=== PATIENT | female | born 1955 | race African-American/Black ===

== ENCOUNTER 2017-02-28 09:02 | Inpatient (IN) | payer BC ==
[2017-02-28 10:35] VITALS: BMI 22.8
--- NOTE | 2017-02-28 11:24 | HP ---
CIWA Score - CIWA Score Nausea/Vomitin Muscle Tremors: 4-Moderate,w/Arms Extend Anxiety: 4-Mod. Anxious/Guarded Agitation: 4-Moderately Restless Paroxysmal Sweats: 3 Orientation: 0-Oriented Tacttile Disturbances: 0-None Auditory Disturbances: 0-None Visual Disturbances: 0-None Headache: 0-None Present CIWA-Ar Total Score: 17 Admission [facility] - HPI Chief Complaint: I am tired of drinking alcohol everyday and need help and stay sober. Allergies/Adverse Reactions: Allergies Allergy/AdvReac Type Severity Reaction Status Date / Time No Known Allergies Allergy Verified 02/28/17 11:13 History of Present Illness: Pt is a 61yr old female with a history of alcohol dependence seeking detox for treatment. Pt last detox was 2yrs ago at [facility] detox. Exam Limitations: No Limitations - Ebola screening Have you traveled outside of the country in the last 21 days: No Have you had contact with anyone from an Ebola affected area: No Have you been sick,other than usual withdrawal symptoms: No Do you have a fever: No - Review of Systems Constitutional: Chills, Diaphoresis, Loss of Appetite, Changes in sleep, Unintentional Wgt. Loss EENT: reports: No Symptoms Reported Respiratory: reports: Cough Cardiac: reports: Syncope GI: reports: Diarrhea, Nausea, Poor Appetite, Poor Fluid Intake : reports: No Symptoms Reported Musculoskeletal: reports: No Symptoms Reported Integumentary: reports: Flushing, Sweating Neuro: reports: Tingling, Tremors Endocrine: reports: Excessive Sweating, Flushing, Intolerance to Cold, Intolerance to Heat Hematology: reports: No Symptoms Reported Psychiatric: reports: Judgement Intact, Mood/Affect Appropiate, Orientated x3, Agitated, Anxious Other Systems: Reviewed and Negative Patient History - Patient Medical History Hx Anemia: No Hx Asthma: Yes Hx Chronic Obstructive Pulmonary Disease (COPD): No Hx Cancer: No Hx Cardiac Disorders: No Hx Congestive Heart Failure: No Hx Hypertension: Yes Hx Hypercholesterolemia: Yes Hx Pacemaker: No HX Cerebrovascular Accident: No Hx Seizures: No Hx Dementia: No Hx Diabetes: Yes (Type II) Hx Gastrointestinal Disorders: No Hx Liver Disease: No Hx Genitourinary Disorders: No Hx Sexually Transmitted Disorders: No Hx Renal Disease (ESRD): No Hx Thyroid Disease: No Hx Human Immunodeficiency Virus (HIV): No (negative) Hx Hepatitis C: No (negative) Hx Depression: Yes Hx Suicide Attempt: No (denies) Hx Bipolar Disorder: No Hx Schizophrenia: No Other Medical History: h/x of pancreatitis in past 6yrs ago. - Patient Surgical History Past Surgical History: Yes Hx Abdominal Surgery: Yes (PERFORATED ULCER in 2004) - PPD History Previous Implant?: Yes Documented Results: Negative w/o proof PPD to be Administered?: Yes - Reproductive History Patient is a Female of Child Bearing Age (11 -55 yrs old): No - Smoking Cessation Smoking history: Current every day smoker Have you smoked in the past 12 months: Yes Aproximately how many cigarettes per day: 20 Hx Chewing Tobacco Use: No Initiated information on smoking cessation: Yes 'Breaking Loose' booklet given: 02/28/17 - Substance & Tx. History Hx Alcohol Use: Yes Substance Use Type: Alcohol Hx Substance Use Treatment: Yes ([facility] detox 2yrs ago) - Substances Abused Alcohol Route: Oral Frequency: No use in 30 days Amount used: 8 24 OZ BEERS Age of first use: 19 Date of Last Use: 02/28/17 Family Disease History - Family Disease History Family History: Denies Admission Physical Exam [facility] - Vital Signs Vital Signs: Vital Signs - 24 hr 02/28/17 10:33 Temperature 99.2 F Pulse Rate 103 H Respiratory 18 Rate Blood Pressure 158/86 - Physical General Appearance: Yes: Appropriately Dressed, Moderate Distress, Tremorous, Irritable, Sweating, Anxious HEENTM: Yes: Normal Voice Respiratory: Yes: Lungs Clear, Normal Breath Sounds, No Respiratory Distress Neck: Yes: Within Normal Limits Breast: Yes: Within Normal Limits Cardiology: Yes: Regular Rhythm, Regular Rate, S1, S2 Abdominal: Yes: Normal Bowel Sounds, Non Tender, Soft Genitourinary: Yes: Within Normal Limits Back: Yes: Normal Inspection Musculoskeletal: Yes: full range of Motion Extremities: Yes: Normal Inspection, Non-Tender, Tremors Neurological: Yes: Fully Oriented, Alert, Normal Response Integumentary: Yes: Normal Color, Diaphoresis Lymphatic: Yes: Within Normal Limits - Diagnostic (1) Alcohol dependence with uncomplicated withdrawal Current Visit: Yes Status: Chronic (2) Asthma Current Visit: Yes Status: Chronic Qualifiers: Asthma severity: mild intermittent Asthma complication type: uncomplicated Qualified Code(s): J45.20 - Mild intermittent asthma, uncomplicated (3) Diabetes mellitus Current Visit: Yes Status: Chronic Qualifiers: Diabetes mellitus type: type 1 Diabetes mellitus complication status: without complication Qualified Code(s): E10.9 - Type 1 diabetes mellitus without complications (4) HTN (hypertension) Current Visit: Yes Status: Chronic Qualifiers: Hypertension type: essential hypertension Qualified Code(s): I10 - Essential (primary) hypertension (5) Nicotine dependence Current Visit: Yes Status: Chronic Qualifiers: Nicotine product type: cigarettes Substance use status: uncomplicated Qualified Code(s): F17.210 - Nicotine dependence, cigarettes, uncomplicated (6) H/O acute pancreatitis Current Visit: No Status: Resolved Cleared for Admission [facility] - Detox or Rehab S Level of Care: Medically Managed Detox Regimen/Protocol: Librium S Breath Alcohol Content Breath Alcohol Content: 0 Urine Pregancy Test - Result Urine Test Results: Negative- NO Line Present Urine Drug Screen - Results Drug Screen Negative: Yes
[2017-02-28] MEDS ORDERED: MAG HYDROX/AL HYDROX/SIMETH 30 ML UNIT-DOSE CUP PO PRN (11:39)
[2017-02-28] MEDS ORDERED: MAGNESIUM CITRATE 300 ML BOTTLE PO PRN (11:39)
[2017-02-28] MEDS ORDERED: chlordiazePOXIDE HCL 25 MG CAPSULE PO PRN (11:39)
[2017-02-28] MEDS ORDERED: LOPERAMIDE HCL 2 MG CAPSULE PO PRN (11:39)
[2017-02-28] MEDS ORDERED: hydrOXYzine PAMOATE 50 MG CAPSULE (FP) PO PRN (11:39)
[2017-02-28] MEDS ORDERED: MAGNESIUM HYDROX 2400MG/30ML ORAL SUSPENSION 30 ML CUP PO PRN (11:39)
[2017-02-28] MEDS ORDERED: guaiFENesin/D-METHORPHAN HB 10 ML UNIT-DOSE CUPS PO PRN (11:39)
[2017-02-28] MEDS ORDERED: P-EPHED 60MG/TRIPROLIDI 2.5MG TABLET PO PRN (11:39)
[2017-02-28] MEDS ORDERED: NICOTINE POLACRILEX 4 MG GUM BUC PRN (11:39)
[2017-02-28] MEDS ORDERED: ACETAMINOPHEN 325 MG TABLET (FP) PO PRN (11:39)
[2017-02-28] MEDS ORDERED: IBUPROFEN 400 MG TABLET (FP) PO PRN (11:39)
[2017-02-28] MEDS ORDERED: ALBUTEROL SO4 6.7 GM HFA INHALER IH PRN (11:41)
[2017-02-28] MEDS ORDERED: chlordiazePOXIDE HCL 25 MG CAPSULE PO ONE (12:46)
[2017-02-28] MEDS ORDERED: amLODIPine BESYLATE 10 MG TABLET (FP) PO ONE (14:00)
--- NOTE | 2017-02-28 16:10 | CONSULT ---
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 Substance Abuse History: Patient admits to abusing alcohol for past 13 years ( consumes 6 X 24 oz of beer on a daily basis.Last used alcohol on 02/27/17.Smokes one pack of cigarettes daily. Medical History: Hypertension and a history of pancreatitis. Psychiatric History: No reported history of psychiatric hospitalizations.Ms Feldman indicates that she is prescribed trazodone 150 mg/hs by her primary care physician to address chronic insomnia.Feels increasingly more dysphoric since entering skilled nursing.No sustained contact with psychiatrists (except in detox/ rehab settings).Never experiences suicidal ideation.No history of suicide attempts. Physical/Sexual Abuse/Trauma History: No reported history of sexual abuse.Lost her about six years ago. Additional Comment: Drug Screen is negative. Mental Status Exam - Mental Status Exam Alert and Oriented to: Time, Place, Person Cognitive Function: Good Patient Appearance: Well Groomed Mood: Apprehensive, Hopeful Affect: Mood Congruent Patient Behavior: Fatigued, Appropriate, Cooperative Speech Pattern: Clear, Appropriate Voice Loudness: Normal Thought Process: Intact, Goal Oriented Thought Disorder: Not Present Hallucinations: Denies Suicidal Ideation: Denies Homicidal Ideation: Denies Insight/Judgement: Fair Sleep: Poorly, Difficulty falling asleep Appetite: Good Muscle strength/Tone: Normal Gait/Station: Normal Psychiatric Findings - Problem List ([place] 1, 2,3) (1) Alcohol dependence with uncomplicated withdrawal Current Visit: Yes Status: Acute (2) Nicotine dependence Current Visit: Yes Status: Acute Qualifiers: Nicotine product type: cigarettes Substance use status: uncomplicated Qualified Code(s): F17.210 - Nicotine dependence, cigarettes, uncomplicated (3) Alcohol-induced mood disorder Current Visit: Yes Status: Acute (4) Asthma Current Visit: Yes Status: Chronic Qualifiers: Asthma severity: mild intermittent Asthma complication type: uncomplicated Qualified Code(s): J45.20 - Mild intermittent asthma, uncomplicated (5) Diabetes mellitus Current Visit: Yes Status: Chronic Qualifiers: Diabetes mellitus type: type 1 Diabetes mellitus complication status: without complication Qualified Code(s): E10.9 - Type 1 diabetes mellitus without complications (6) HTN (hypertension) Current Visit: Yes Status: Chronic Qualifiers: Hypertension type: essential hypertension Qualified Code(s): I10 - Essential (primary) hypertension (7) Insomnia Current Visit: Yes Status: Chronic - Initial Treatment Plan Initial Treatment Plan: Psychoeducation and support provided in this session.Previous records are revisited.[facility] report is appreciated.Detoxification is in progress.Trrazodone 100 mg po hs.Ordered at patient's request.Side effects /benefits discussed with the patient.Reported history of good tolerability to this drug.Observation.Recent pharmacy claims are checked : scripts for trazodone filled on 02/09/17 at [facility] # [id number].Medication confirmed.
[2017-02-28] MEDS ORDERED: INSULIN (NOVOLOG) ASPART 100 UNITS/ML 10ML VIAL ONE (16:44)
[2017-02-28 16:49] LABS: URINE APPEARANCE CLOUDY; URINE BILIRUBIN NEGATIVE (NEGATIVE); URINE COLOR YELLOW; URINE GLUCOSE (UA) 3+ (NEGATIVE); URINE KETONE 1+ (NEGATIVE); URINE NITRITE POSITIVE (NEGATIVE); URINE PROTEIN NEGATIVE (NEGATIVE); URINE UROBILINOGEN NEGATIVE mg/dL (0.2-1.0)
[2017-02-28 16:55] LABS: URINE BLOOD 1+ (NEGATIVE); URINE LEUK ESTERASE 2+ (NEGATIVE)
[2017-02-28 17:00] LABS: URINE BACTERIA FEW /hpf (NONE SEEN); URINE MUCUS MODERATE; URINE RBC 23 /hpf (0-3); URINE WBC 15 /hpf (3-5); YEAST FEW
[2017-02-28] MEDS: metFORMIN HCL 500 MG TABLET (FP) PO SCH (17:05)
[2017-02-28] MEDS: chlordiazePOXIDE HCL 25 MG CAPSULE PO SCH ×2 (17:05→22:36)
[2017-02-28] MEDS: INSULIN (NOVOLOG) ASPART 100 UNITS/ML 10ML VIAL SQ SCH (17:06)
[2017-02-28] MEDS: MENTHOL/PHENOL 1 EACH UD MM PRN ×2 (17:07→22:38)
[2017-02-28] MEDS: RANITIDINE HCL 150 MG TABLET (FP) PO SCH (22:36)
[2017-02-28] MEDS: THIAMINE HCL 100 MG TABLET (FP) PO SCH (22:36)
[2017-02-28] MEDS: traZODone HCL 100 MG TABLET (FP) PO SCH (22:36)
[2017-03-01] MEDS: chlordiazePOXIDE HCL 25 MG CAPSULE PO SCH ×4 (05:48→22:23)
[2017-03-01] MEDS: metFORMIN HCL 500 MG TABLET (FP) PO SCH ×2 (06:35→17:16)
[2017-03-01] MEDS ORDERED: INSULIN (NOVOLOG) ASPART 100 UNITS/ML 10ML VIAL ONE ×3 (07:02→17:03)
[2017-03-01] MEDS: INSULIN (NOVOLOG) ASPART 100 UNITS/ML 10ML VIAL SQ SCH ×3 (07:03→17:17)
--- NOTE | 2017-03-01 08:31 | EKG ---
Test Reason : Blood Pressure : / mmHG Vent. Rate : 094 BPM Atrial Rate : 094 BPM P-R Int : 160 ms QRS Dur : 090 ms QT Int : 386 ms P-R-T Axes : 080 -73 055 degrees QTc Int : 482 ms NORMAL SINUS RHYTHM POSSIBLE LEFT ATRIAL ENLARGEMENT LEFT AXIS DEVIATION INFERIOR INFARCT , AGE UNDETERMINED POSSIBLE ANTERIOR INFARCT , AGE UNDETERMINED ABNORMAL ECG NO PREVIOUS ECGS AVAILABLE Confirmed by RY YAP, CLEVELAND ([id number]) on 03/01/2017 8:31:18 AM Referred By: NURY LAO Confirmed By:CLEVELAND RAZA MD
[2017-03-01 10:27] LABS: MCH 33.7 pg (25.7-33.7); MCHC 33.7 g/dl (32.0-36.0); MEAN PLT VOLUME 10.8 fl (7.5-11.1); PLATELET COUNT 174 K/MM3 (134-434); RDW 12.7 % (11.6-15.6); WHITE BLOOD COUNT 7.3 K/mm3 (4.0-10.0)
[2017-03-01] MEDS: amLODIPine BESYLATE 10 MG TABLET (FP) PO SCH (10:33)
[2017-03-01] MEDS: RANITIDINE HCL 150 MG TABLET (FP) PO SCH ×2 (10:33→22:23)
[2017-03-01] MEDS: PRENATAL VITAMINS W/ FOLIC ACID TABLET (FP) PO SCH (10:33)
[2017-03-01] MEDS: NICOTINE 21 MG/24 HOURS TOPICAL PATCH TD SCH (10:33)
[2017-03-01 10:34] LABS: ALBUMIN 4.6 g/dl (3.4-5.0); ANION GAP 8 (8-16); CALCIUM 10.2 mg/dL (8.5-10.1); CO2 31 mmol/L (21-32); SGOT/AST 32 U/L (15-37); SGPT/ALT 48 U/L (12-78)
[2017-03-01 10:36] LABS: ALK PHOS 96 U/L (45-117); BILIRUBIN,TOTAL 0.9 mg/dL (0.2-1.0); TOT PROT 8.1 g/dl (6.4-8.2)
[2017-03-01 10:47] LABS: GLUCOSE,RANDOM 395 mg/dL (74-106)
--- NOTE | 2017-03-01 11:23 | PN ---
[facility] CIWA - CIWA Score Nausea/Vomitin Muscle Tremors: 3 Anxiety: 2 Agitation: 2 Paroxysmal Sweats: 2 Orientation: 0-Oriented Tacttile Disturbances: 2-Mild Itch/Numbness/Burn Auditory Disturbances: 0-None Visual Disturbances: 0-None Headache: 1-Very Mild CIWA-Ar Total Score: 15 S Progress Note (SOAP) Subjective: abdominal cramps, N,V, chills,headache Objective: 03/01/17 11:21 Vital Signs 03/01/17 03/01/17 03/01/17 03:29 06:00 09:07 Temperature 97.9 F 98.4 F Pulse Rate 104 H 88 Respiratory 18 18 18 Rate Blood Pressure 132/89 142/87 Laboratory Last Values WBC 7.3 K/mm3 (4.0-10.0) 03/01/17 06:00 RBC 4.42 M/mm3 (3.60-5.2) 03/01/17 06:00 Hgb 14.9 GM/dL (10.7-15.3) 03/01/17 06:00 Hct 44.2 % (32.4-45.2) 03/01/17 06:00 MCV 100.0 fl (80-96) H 03/01/17 06:00 MCH 33.7 pg (25.7-33.7) 03/01/17 06:00 MCHC 33.7 g/dl (32.0-36.0) 03/01/17 06:00 RDW 12.7 % (11.6-15.6) 03/01/17 06:00 Plt Count 174 K/MM3 (134-434) 03/01/17 06:00 MPV 10.8 fl (7.5-11.1) 03/01/17 06:00 Sodium 133 mmol/L (136-145) L 03/01/17 06:00 Potassium 4.5 mmol/L (3.5-5.1) 03/01/17 06:00 Chloride 94 mmol/L (98-107) L 03/01/17 06:00 Carbon Dioxide 31 mmol/L (21-32) 03/01/17 06:00 Anion Gap 8 (8-16) 03/01/17 06:00 BUN 11 mg/dL (7-18) D 03/01/17 06:00 Creatinine 1.0 mg/dL (0.55-1.02) D 03/01/17 06:00 Creat Clearance w eGFR 56.18 (>60) 03/01/17 06:00 POC Glucometer 390 UNITS (()) 03/01/17 10:50 Random Glucose 395 mg/dL (74-106) H* D 03/01/17 06:00 Calcium 10.2 mg/dL (8.5-10.1) H 03/01/17 06:00 Total Bilirubin 0.9 mg/dL (0.2-1.0) D 03/01/17 06:00 AST 32 U/L (15-37) D 03/01/17 06:00 ALT 48 U/L (12-78) D 03/01/17 06:00 Alkaline Phosphatase 96 U/L (45-117) 03/01/17 06:00 Total Protein 8.1 g/dl (6.4-8.2) 03/01/17 06:00 Albumin 4.6 g/dl (3.4-5.0) 03/01/17 06:00 Urine Color Yellow 02/28/17 13:55 Urine Appearance Cloudy 02/28/17 13:55 Urine pH 5.0 (5.0-8.0) 02/28/17 13:55 Ur Specific [place] 1.015 (1.005-1.025) 02/28/17 13:55 Urine Protein Negative (NEGATIVE) 02/28/17 13:55 Urine Glucose (UA) 3+ (NEGATIVE) H 02/28/17 13:55 Urine Ketones 1+ (NEGATIVE) H 02/28/17 13:55 Urine Blood 1+ (NEGATIVE) H 02/28/17 13:55 Urine Nitrite Positive (NEGATIVE) 02/28/17 13:55 Urine Bilirubin Negative (NEGATIVE) 02/28/17 13:55 Urine Urobilinogen Negative mg/dL (0.2-1.0) 02/28/17 13:55 Ur Leukocyte Esterase 2+ (NEGATIVE) H 02/28/17 13:55 Urine RBC 23 /hpf (0-3) 02/28/17 13:55 Urine WBC 15 /hpf (3-5) 02/28/17 13:55 Ur Epithelial Cells Many /hpf (FEW) 02/28/17 13:55 Urine Bacteria Few /hpf (NONE SEEN) 02/28/17 13:55 Urine Mucus Moderate 02/28/17 13:55 Urine Yeast Few 02/28/17 13:55 Labs noted Positive nitrites, leukocyte esterase and epithelial cells with few bacteria Assessment: 03/01/17 11:26 withdrawal sx Plan: continue detox repeat UA C/S as results suggestive of contamination
--- NOTE | 2017-03-01 11:35 | PN ---
[facility] Progress Note Note: Lab Review Patient with high glucose level and low sodium likely as a result of dehydration. Will increase oral fluid intake.
[2017-03-01] MEDS: MENTHOL/PHENOL 1 EACH UD MM PRN (15:41)
[2017-03-01 16:16] LABS: URINE APPEARANCE CLEAR; URINE BILIRUBIN NEGATIVE (NEGATIVE); URINE BLOOD NEGATIVE (NEGATIVE); URINE COLOR LTYELLOW; URINE GLUCOSE (UA) 3+ (NEGATIVE); URINE KETONE NEGATIVE (NEGATIVE); URINE NITRITE POSITIVE (NEGATIVE); URINE PROTEIN NEGATIVE (NEGATIVE); URINE UROBILINOGEN NEGATIVE mg/dL (0.2-1.0)
[2017-03-01 16:22] LABS: URINE LEUK ESTERASE TRACE (NEGATIVE)
[2017-03-01 16:25] LABS: URINE BACTERIA RARE /hpf (NONE SEEN); URINE HYALINE CAST 1 /lpf; URINE MUCUS RARE; URINE RBC 1 /hpf (0-3); URINE WBC 3 /hpf (3-5)
[2017-03-01] MEDS: traZODone HCL 100 MG TABLET (FP) PO SCH (22:23)
[2017-03-01] MEDS: THIAMINE HCL 100 MG TABLET (FP) PO SCH (22:23)
[2017-03-01] MEDS: diphenhydrAMINE HCL 50 MG CAPSULE PO PRN (22:25)
[2017-03-02] MEDS: chlordiazePOXIDE HCL 25 MG CAPSULE PO SCH ×2 (06:21→10:19)
[2017-03-02] MEDS ORDERED: INSULIN (NOVOLOG) ASPART 100 UNITS/ML 10ML VIAL ONE ×3 (06:42→16:50)
[2017-03-02] MEDS: metFORMIN HCL 500 MG TABLET (FP) PO SCH ×2 (06:51→17:16)
[2017-03-02] MEDS: INSULIN (NOVOLOG) ASPART 100 UNITS/ML 10ML VIAL SQ SCH ×3 (06:52→17:06)
[2017-03-02] MEDS: PRENATAL VITAMINS W/ FOLIC ACID TABLET (FP) PO SCH (10:18)
[2017-03-02] MEDS: amLODIPine BESYLATE 10 MG TABLET (FP) PO SCH (10:18)
[2017-03-02] MEDS: RANITIDINE HCL 150 MG TABLET (FP) PO SCH ×2 (10:18→22:42)
[2017-03-02] MEDS: NICOTINE 21 MG/24 HOURS TOPICAL PATCH TD SCH (10:19)
--- NOTE | 2017-03-02 13:29 | EKG ---
Test Reason : Blood Pressure : / mmHG Vent. Rate : 095 BPM Atrial Rate : 095 BPM P-R Int : 180 ms QRS Dur : 084 ms QT Int : 368 ms P-R-T Axes : 077 -74 051 degrees QTc Int : 462 ms NORMAL SINUS RHYTHM POSSIBLE LEFT ATRIAL ENLARGEMENT LEFT AXIS DEVIATION INFERIOR INFARCT (CITED ON OR BEFORE 28-FEB-2017) ABNORMAL ECG WHEN COMPARED WITH ECG OF 28-FEB-2017 13:00, NO SIGNIFICANT CHANGE WAS FOUND Confirmed by CLEVELAND RAZA MD ([id number]) on 03/02/2017 1:28:50 PM Referred By: Confirmed By:CLEVELAND RAZA MD
[2017-03-02] MEDS: MENTHOL/PHENOL 1 EACH UD MM PRN (14:11)
--- NOTE | 2017-03-02 17:01 | PN ---
[facility] CIWA - CIWA Score Nausea/Vomitin-No Nausea/No Vomiting Muscle Tremors: 4-Moderate,w/Arms Extend Anxiety: 4-Mod. Anxious/Guarded Agitation: 4-Moderately Restless Paroxysmal Sweats: 1-Minimal Palms Moist Orientation: 0-Oriented Tacttile Disturbances: 1-Very Mild Itch/Numbness Auditory Disturbances: 0-None Visual Disturbances: 0-None Headache: 3-Moderate CIWA-Ar Total Score: 17 S Progress Note (SOAP) Subjective: Headache, anxious, tremor, interrupted sleep, chills Objective: 03/02/17 16:57 Last Vital Signs Temp Pulse Resp BP Pulse Ox 96.6 F L 97 H 18 119/82 03/02/17 13:50 03/02/17 13:50 03/02/17 13:50 03/02/17 13:50 Laboratory Tests 02/28/17 02/28/17 03/01/17 11:26 13:55 05:47 WBC RBC Hgb Hct MCV MCH MCHC RDW Plt Count MPV Sodium Potassium Chloride Carbon Dioxide Anion Gap BUN Creatinine Creat Clearance w eGFR POC Glucometer 404 293 Random Glucose Calcium Total Bilirubin AST ALT Alkaline Phosphatase Total Protein Albumin Urine Color Yellow Urine Appearance Cloudy Urine pH 5.0 Ur Specific [place] 1.015 Urine Protein Negative Urine Glucose (UA) 3+ H Urine Ketones 1+ H Urine Blood 1+ H Urine Nitrite Positive Urine Bilirubin Negative Urine Urobilinogen Negative Ur Leukocyte Esterase 2+ H Urine RBC 23 Urine WBC 15 Ur Epithelial Cells Many Urine Bacteria Few Hyaline Casts Urine Mucus Moderate Urine Yeast Few RPR Titer 03/01/17 03/01/17 03/01/17 06:00 06:00 06:00 WBC 7.3 RBC 4.42 Hgb 14.9 Hct 44.2 MCV 100.0 H MCH 33.7 MCHC 33.7 RDW 12.7 Plt Count 174 MPV 10.8 Sodium 133 L Potassium 4.5 Chloride 94 L Carbon Dioxide 31 Anion Gap 8 BUN 11 D Creatinine 1.0 D Creat Clearance w eGFR 56.18 POC Glucometer Random Glucose 395 H* D Calcium 10.2 H Total Bilirubin 0.9 D AST 32 D ALT 48 D Alkaline Phosphatase 96 Total Protein 8.1 Albumin 4.6 Urine Color Urine Appearance Urine pH Ur Specific [place] Urine Protein Urine Glucose (UA) Urine Ketones Urine Blood Urine Nitrite Urine Bilirubin Urine Urobilinogen Ur Leukocyte Esterase Urine RBC Urine WBC Ur Epithelial Cells Urine Bacteria Hyaline Casts Urine Mucus Urine Yeast RPR Titer Nonreactive 03/01/17 03/01/17 03/01/17 10:50 15:05 16:27 WBC RBC Hgb Hct MCV MCH MCHC RDW Plt Count MPV Sodium Potassium Chloride Carbon Dioxide Anion Gap BUN Creatinine Creat Clearance w eGFR POC Glucometer 390 395 Random Glucose Calcium Total Bilirubin AST ALT Alkaline Phosphatase Total Protein Albumin Urine Color Ltyellow Urine Appearance Clear Urine pH 5.0 Ur Specific [place] 1.010 Urine Protein Negative Urine Glucose (UA) 3+ H Urine Ketones Negative Urine Blood Negative Urine Nitrite Positive Urine Bilirubin Negative Urine Urobilinogen Negative Ur Leukocyte Esterase Trace H D Urine RBC 1 Urine WBC 3 Ur Epithelial Cells Rare Urine Bacteria Rare Hyaline Casts 1 Urine Mucus Rare Urine Yeast RPR Titer 03/02/17 03/02/17 06:23 16:33 WBC RBC Hgb Hct MCV MCH MCHC RDW Plt Count MPV Sodium Potassium Chloride Carbon Dioxide Anion Gap BUN Creatinine Creat Clearance w eGFR POC Glucometer 349 364 Random Glucose Calcium Total Bilirubin AST ALT Alkaline Phosphatase Total Protein Albumin Urine Color Urine Appearance Urine pH Ur Specific [place] Urine Protein Urine Glucose (UA) Urine Ketones Urine Blood Urine Nitrite Urine Bilirubin Urine Urobilinogen Ur Leukocyte Esterase Urine RBC Urine WBC Ur Epithelial Cells Urine Bacteria Hyaline Casts Urine Mucus Urine Yeast RPR Titer Labs noted: UA shows + nitrite x 2 specimen (+ for UTI) Assessment: 03/02/17 16:57 Withdrawal symptoms DMT2 with hyperglycemia uncontrolled Noted with complicated UTI Plan: Continue detox DMT2 with hyperglycemia uncontrolled: increase metformin to 850mg PO bid, continue fingerstick ac meal with sliding scale insulin coverage Noted with complicated UTI: start cipro 500mg PO BID x 10 days, encouraged to drink lots of water. Follow up on urine C&S result (pending); change antibiotic if warranted as per sensitivity result.
[2017-03-02] MEDS: chlordiazePOXIDE 5 MG CAPSULE PO SCH ×2 (17:04→22:42)
[2017-03-02] MEDS: LEVOFLOXACIN 500 MG TABLET (FP) PO SCH (17:07)
[2017-03-02] MEDS: traZODone HCL 100 MG TABLET (FP) PO SCH (22:41)
[2017-03-02] MEDS: THIAMINE HCL 100 MG TABLET (FP) PO SCH (22:42)
[2017-03-02] MEDS: diphenhydrAMINE HCL 50 MG CAPSULE PO PRN (22:42)
[2017-03-03] MEDS: LEVOFLOXACIN 500 MG TABLET (FP) PO SCH (05:44)
[2017-03-03] MEDS: chlordiazePOXIDE 5 MG CAPSULE PO SCH ×2 (05:44→10:37)
[2017-03-03] MEDS ORDERED: INSULIN (NOVOLOG) ASPART 100 UNITS/ML 10ML VIAL ONE ×2 (06:29→16:30)
[2017-03-03] MEDS: INSULIN (NOVOLOG) ASPART 100 UNITS/ML 10ML VIAL SQ SCH ×3 (06:57→16:38)
[2017-03-03] MEDS: MENTHOL/PHENOL 1 EACH UD MM PRN (08:43)
[2017-03-03] MEDS: RANITIDINE HCL 150 MG TABLET (FP) PO SCH ×2 (10:37→22:31)
[2017-03-03] MEDS: PRENATAL VITAMINS W/ FOLIC ACID TABLET (FP) PO SCH (10:37)
[2017-03-03] MEDS: NICOTINE 21 MG/24 HOURS TOPICAL PATCH TD SCH (10:37)
[2017-03-03] MEDS: amLODIPine BESYLATE 10 MG TABLET (FP) PO SCH (10:37)
--- NOTE | 2017-03-03 12:12 | PN ---
S Progress Note (SOAP) Subjective: ANXIETY,SWEATS,ITCHINESS TO LEFT UPPER BACK. DENIES RASH. Objective: 03/03/17 12:11 Vital Signs Temperature 97.1 F L 03/03/17 09:57 Pulse Rate 84 03/03/17 09:57 Respiratory Rate 20 03/03/17 09:57 Blood Pressure 128/75 03/03/17 09:57 O2 Sat by Pulse Oximetry (%) Laboratory Last Values WBC 7.3 K/mm3 (4.0-10.0) 03/01/17 06:00 RBC 4.42 M/mm3 (3.60-5.2) 03/01/17 06:00 Hgb 14.9 GM/dL (10.7-15.3) 03/01/17 06:00 Hct 44.2 % (32.4-45.2) 03/01/17 06:00 MCV 100.0 fl (80-96) H 03/01/17 06:00 MCH 33.7 pg (25.7-33.7) 03/01/17 06:00 MCHC 33.7 g/dl (32.0-36.0) 03/01/17 06:00 RDW 12.7 % (11.6-15.6) 03/01/17 06:00 Plt Count 174 K/MM3 (134-434) 03/01/17 06:00 MPV 10.8 fl (7.5-11.1) 03/01/17 06:00 Sodium 133 mmol/L (136-145) L 03/01/17 06:00 Potassium 4.5 mmol/L (3.5-5.1) 03/01/17 06:00 Chloride 94 mmol/L (98-107) L 03/01/17 06:00 Carbon Dioxide 31 mmol/L (21-32) 03/01/17 06:00 Anion Gap 8 (8-16) 03/01/17 06:00 BUN 11 mg/dL (7-18) D 03/01/17 06:00 Creatinine 1.0 mg/dL (0.55-1.02) D 03/01/17 06:00 Creat Clearance w eGFR 56.18 (>60) 03/01/17 06:00 POC Glucometer 339 UNITS (()) 03/03/17 05:45 Random Glucose 395 mg/dL (74-106) H* D 03/01/17 06:00 Calcium 10.2 mg/dL (8.5-10.1) H 03/01/17 06:00 Total Bilirubin 0.9 mg/dL (0.2-1.0) D 03/01/17 06:00 AST 32 U/L (15-37) D 03/01/17 06:00 ALT 48 U/L (12-78) D 03/01/17 06:00 Alkaline Phosphatase 96 U/L (45-117) 03/01/17 06:00 Total Protein 8.1 g/dl (6.4-8.2) 03/01/17 06:00 Albumin 4.6 g/dl (3.4-5.0) 03/01/17 06:00 Urine Color Ltyellow 03/01/17 15:05 Urine Appearance Clear 03/01/17 15:05 Urine pH 5.0 (5.0-8.0) 03/01/17 15:05 Ur Specific [place] 1.010 (1.005-1.025) 03/01/17 15:05 Urine Protein Negative (NEGATIVE) 03/01/17 15:05 Urine Glucose (UA) 3+ (NEGATIVE) H 03/01/17 15:05 Urine Ketones Negative (NEGATIVE) 03/01/17 15:05 Urine Blood Negative (NEGATIVE) 03/01/17 15:05 Urine Nitrite Positive (NEGATIVE) 03/01/17 15:05 Urine Bilirubin Negative (NEGATIVE) 03/01/17 15:05 Urine Urobilinogen Negative mg/dL (0.2-1.0) 03/01/17 15:05 Ur Leukocyte Esterase Trace (NEGATIVE) H D 03/01/17 15:05 Urine RBC 1 /hpf (0-3) 03/01/17 15:05 Urine WBC 3 /hpf (3-5) 03/01/17 15:05 Ur Epithelial Cells Rare /hpf (FEW) 03/01/17 15:05 Urine Bacteria Rare /hpf (NONE SEEN) 03/01/17 15:05 Hyaline Casts 1 /lpf 03/01/17 15:05 Urine Mucus Rare 03/01/17 15:05 Urine Yeast Few 02/28/17 13:55 RPR Titer Nonreactive (NONREACTIVE) 03/01/17 06:00 LABS NOTED. ON CIPRO BACK;SLIGHT SCATTERED DISCOLORATION OF SKIN. NO PAPULAR RASH NOTED Assessment: 03/03/17 12:11 WITHDRAWAL SX Plan: CONTINUE DETOX HYDROCORTISONE CREAM 1% APPLY TO AFFECTED AREA DIRECTED
[2017-03-03] MEDS ORDERED: HYDROCORTISONE 1% TOPICAL CREAM 30 GM TUBE TP PRN (12:14)
[2017-03-03] MEDS: chlordiazePOXIDE HCL 10 MG CAPSULE PO SCH ×2 (16:37→22:31)
[2017-03-03] MEDS: traZODone HCL 100 MG TABLET (FP) PO SCH (22:31)
[2017-03-03] MEDS: THIAMINE HCL 100 MG TABLET (FP) PO SCH (22:31)
[2017-03-03] MEDS: diphenhydrAMINE HCL 50 MG CAPSULE PO PRN (22:34)
[2017-03-04] MEDS: LEVOFLOXACIN 500 MG TABLET (FP) PO SCH (05:50)
[2017-03-04] MEDS: chlordiazePOXIDE HCL 10 MG CAPSULE PO SCH (05:50)
[2017-03-04] MEDS: INSULIN (NOVOLOG) ASPART 100 UNITS/ML 10ML VIAL SQ SCH (07:04)
[2017-03-04] MEDS ORDERED: INSULIN (NOVOLOG) ASPART 100 UNITS/ML 10ML VIAL ONE (07:05)
[2017-03-04 09:50] VITALS: BP 131/93; PULSE 109; TEMP 97.5
--- NOTE | 2017-03-04 11:40 | DS ---
[facility] Detox Discharge Summary Admission Date: 02/28/17 Discharge Date: 03/04/17 - History Present History: Alcohol Dependence Additional Comments: DETOX COMPLETED. REMINDED TO FOLLOW UP WITH PMD FOR MEDICAL MANAGEMENT OF COMORBID CONDITIONS. Pertinent Past History: ASTHMA HTN HYPERCHOLESTEROLEMIA TYPE 2 DM HX PANCREATITIS - Physical Exam Results Vital Signs: Vital Signs Temperature 97.5 F L 03/04/17 09:49 Pulse Rate 109 H 03/04/17 09:49 Respiratory Rate 18 03/04/17 09:49 Blood Pressure 131/93 03/04/17 09:49 O2 Sat by Pulse Oximetry (%) Pertinent Admission Physical Exam Findings: WITHDRAWAL SX Laboratory Last Values WBC 7.3 K/mm3 (4.0-10.0) 03/01/17 06:00 RBC 4.42 M/mm3 (3.60-5.2) 03/01/17 06:00 Hgb 14.9 GM/dL (10.7-15.3) 03/01/17 06:00 Hct 44.2 % (32.4-45.2) 03/01/17 06:00 MCV 100.0 fl (80-96) H 03/01/17 06:00 MCH 33.7 pg (25.7-33.7) 03/01/17 06:00 MCHC 33.7 g/dl (32.0-36.0) 03/01/17 06:00 RDW 12.7 % (11.6-15.6) 03/01/17 06:00 Plt Count 174 K/MM3 (134-434) 03/01/17 06:00 MPV 10.8 fl (7.5-11.1) 03/01/17 06:00 Sodium 133 mmol/L (136-145) L 03/01/17 06:00 Potassium 4.5 mmol/L (3.5-5.1) 03/01/17 06:00 Chloride 94 mmol/L (98-107) L 03/01/17 06:00 Carbon Dioxide 31 mmol/L (21-32) 03/01/17 06:00 Anion Gap 8 (8-16) 03/01/17 06:00 BUN 11 mg/dL (7-18) D 03/01/17 06:00 Creatinine 1.0 mg/dL (0.55-1.02) D 03/01/17 06:00 Creat Clearance w eGFR 56.18 (>60) 03/01/17 06:00 POC Glucometer 348 UNITS (()) 03/04/17 05:50 Random Glucose 395 mg/dL (74-106) H* D 03/01/17 06:00 Calcium 10.2 mg/dL (8.5-10.1) H 03/01/17 06:00 Total Bilirubin 0.9 mg/dL (0.2-1.0) D 03/01/17 06:00 AST 32 U/L (15-37) D 03/01/17 06:00 ALT 48 U/L (12-78) D 03/01/17 06:00 Alkaline Phosphatase 96 U/L (45-117) 03/01/17 06:00 Total Protein 8.1 g/dl (6.4-8.2) 03/01/17 06:00 Albumin 4.6 g/dl (3.4-5.0) 03/01/17 06:00 Urine Color Ltyellow 03/01/17 15:05 Urine Appearance Clear 03/01/17 15:05 Urine pH 5.0 (5.0-8.0) 03/01/17 15:05 Ur Specific [place] 1.010 (1.005-1.025) 03/01/17 15:05 Urine Protein Negative (NEGATIVE) 03/01/17 15:05 Urine Glucose (UA) 3+ (NEGATIVE) H 03/01/17 15:05 Urine Ketones Negative (NEGATIVE) 03/01/17 15:05 Urine Blood Negative (NEGATIVE) 03/01/17 15:05 Urine Nitrite Positive (NEGATIVE) 03/01/17 15:05 Urine Bilirubin Negative (NEGATIVE) 03/01/17 15:05 Urine Urobilinogen Negative mg/dL (0.2-1.0) 03/01/17 15:05 Ur Leukocyte Esterase Trace (NEGATIVE) H D 03/01/17 15:05 Urine RBC 1 /hpf (0-3) 03/01/17 15:05 Urine WBC 3 /hpf (3-5) 03/01/17 15:05 Ur Epithelial Cells Rare /hpf (FEW) 03/01/17 15:05 Urine Bacteria Rare /hpf (NONE SEEN) 03/01/17 15:05 Hyaline Casts 1 /lpf 03/01/17 15:05 Urine Mucus Rare 03/01/17 15:05 Urine Yeast Few 02/28/17 13:55 RPR Titer Nonreactive (NONREACTIVE) 03/01/17 06:00 - Treatment Hospital Course: Detox Protocol Followed, Detoxed Safely, Responded well, Discharged Condition Good, Rehab Referral Accepted Patient has Accepted a Rehab Referral to: [facility] - Medication Discharge Medications: Ambulatory Orders Albuterol Sulfate Inhaler - [Ventolin Hfa Inhaler -] 2 inh PO Q4H PRN 04/10/15 Trazodone HCl [Desyrel -] 150 mg PO HS #30 tablet 04/11/15 Amlodipine Besylate [Norvasc -] 10 mg PO DAILY #30 tablet 04/14/15 Metformin HCl [Glucophage -] 500 mg PO BID@0700,1630 #60 tablet 04/14/15 Insulin (Novolog) [Novolog Flexpen -] 0 units SQ AC 02/28/17 Trazodone HCl [Desyrel -] 150 mg PO HS #30 tablet 02/28/17 - Diagnosis (1) Alcohol dependence with uncomplicated withdrawal Status: Acute (2) Nicotine dependence Status: Acute Qualifiers: Nicotine product type: cigarettes Substance use status: uncomplicated Qualified Code(s): F17.210 - Nicotine dependence, cigarettes, uncomplicated (3) Asthma Status: Chronic Qualifiers: Asthma severity: mild intermittent Asthma complication type: uncomplicated Qualified Code(s): J45.20 - Mild intermittent asthma, uncomplicated (4) Diabetes mellitus Status: Chronic Qualifiers: Diabetes mellitus type: type 1 Diabetes mellitus complication status: without complication Qualified Code(s): E10.9 - Type 1 diabetes mellitus without complications (5) HTN (hypertension) Status: Chronic Qualifiers: Hypertension type: essential hypertension Qualified Code(s): I10 - Essential (primary) hypertension (6) UTI (urinary tract infection) Status: Acute - AMA Did Patient Leave Against Medical Advice: No
== END 2017-03-04 09:11 | disposition home or self-care (01) | DRG 897 ==
LOC: YASAS 09:02 → Y3N 12:43
PROVIDERS: ADMIT Internal Medicine; ATTEND Internal Medicine
PROC: HZ2ZZZZ Detoxification Services for Substance Abuse Treatment (ICD-10-PCS; principal; 2017-03-04)
DX: F10.230 Alcohol dependence with withdrawal, uncomplicated (principal); N39.0 Urinary tract infection, site not specified; F10.24 Alcohol dependence with alcohol-induced mood disorder; F17.210 Nicotine dependence, cigarettes, uncomplicated; G47.00 Insomnia, unspecified; I10 Essential (primary) hypertension; J45.20 Mild intermittent asthma, uncomplicated; E10.9 Type 1 diabetes mellitus without complications; Z79.4 Long term (current) use of insulin; Z79.84 Long term (current) use of oral hypoglycemic drugs
CPT/HCPCS: 36415; 80053; 81003; 81015; 85027; 86593; 87086; 93005; 93010